=== PATIENT | male | born 1965 | race Caucasian/White ===

== ENCOUNTER → 2016-12-16 | Outpatient (CLI) | payer BC ==
[~2016-12-16] MED LIST: CIPR500T2; DIAZ10TA PO; HOSP BED1; LIFT HOYER; MELO7.5T4 PO; PERC10TA27 PO; XANA1TAB2 PO; ZANA4CAP PO
--- NOTE | 2016-12-16 14:49 | RADRPT ---
EXAM DATE/TIME: 12/16/2016 14:03 [facility] COMPARISON: No previous studies available for comparison. INDICATIONS : Evaluate for pneumonia, pneumothorax, or other communicable disease. Pre-op Cervical fusion. MEDICAL HISTORY : None. SURGICAL HISTORY : Lumbar surgery ENCOUNTER: Initial ACUITY: 1 day PAIN SCORE: 0/10 LOCATION: Bilateral chest FINDINGS: The heart is normal. The pulmonary vascular pattern is also normal. The lungs are clear. Hardware is noted within the thoracic spine status post fixation of compression deformities within the midthor acic spine. CONCLUSION: No acute cardiopulmonary disease. Job Conley MD on December 16, 2016 at 14:21 Board Certified Radiologist. This report was verified electronically.
== END ==
LOC: CPRE 13:30
PROVIDERS: ATTEND Neurological Surgery
DX: Z01.811 Encounter for preprocedural respiratory examination (principal); M50.10 Cervical disc disorder with radiculopathy, unspecified cervical region
CPT/HCPCS: 71020

== ENCOUNTER 2016-12-20 06:27 | Observation (INO) | payer BC ==
[~2016-12-20] VITALS: Ht 193 cm; Wt 95.0 kg
[~2016-12-20 06:27] MED LIST changes: -CIPR500T2; -MELO7.5T4 PO; -PERC10TA27 PO; -XANA1TAB2 PO
[2016-12-20] MEDS ORDERED: SODIUM CHLOR 0.9% 1000 ML INJ 1,000 ML IV SCH (07:15)
[2016-12-20] MEDS ORDERED: VANCOMYCIN HCL 1000 MG ON-CALL/NS 250 ML IV SCH ×2 (07:15)
[2016-12-20] MEDS ORDERED: INSULIN HUMAN REGULAR 1,000 UNITS/10 ML VIAL SQ PRN (07:15)
[2016-12-20] MEDS ORDERED: CHLORHEXIDINE GLUCONATE 2 % 1 PACK (2 CLOTHS) TOPICAL PRN (07:15)
[2016-12-20] MEDS ORDERED: METOPROLOL TARTRATE 25 MG TAB PO PRN (07:15)
[2016-12-20] MEDS ORDERED: POVIDONE IODINE 5% (ANTISEPSIS KIT) 4 APPLICATIONS EACH NARE PRN (07:15)
[2016-12-20] MEDS ORDERED: SODIUM CHLORID 0.9% 500 ML IV PRN (07:15)
[2016-12-20] MEDS ORDERED: MICROFIBRILLAR COLLAGEN HEMOSTAT 70 X 35 MM BANDAGE ONE (07:20)
[2016-12-20] MEDS ORDERED: ceFAZolin 2 GM PREMIX 50 ML ONE (07:20)
[2016-12-20] MEDS ORDERED: THROMBIN (TOPICAL) 5,000 UNIT VIAL ONE (07:20)
[2016-12-20] MEDS: LACTATED RINGER'S 1000 ML IV PRN ×2 (07:20→14:57)
[2016-12-20] MEDS ORDERED: GELFOAM SIZE 100 ONE (07:20)
[2016-12-20] MEDS ORDERED: GENTAMICIN SULFATE 80 MG/2 ML VIAL ONE ×2 (07:21→08:19)
[2016-12-20 07:48] LABS: BLOOD, URINE MOD (NEG); COMMENT (UR) CULT NOT INDICATED; CULTURE IF INDICATED CULT NOT INDICATED; GLUCOSE,URINE NEG (NEG); KETONE, URINE NEG (NEG); MUCUS URINE FEW /lpf (OCC); NITRITE,URINE NEG (NEG); URINE COLOR YELLOW (YELLW/STRAW)
[2016-12-20 07:50] LABS: APTT (PATIENT) 25.3 SEC (24.3-30.1); PROTHROMBIN TIME - PATIENT 10.8 SEC (9.8-11.6)
[2016-12-20] MEDS ORDERED: ARTIFICIAL TEARS OPTH OINT 3.5 APPLIC/3.5 GM TUBO ONE (08:14)
[2016-12-20] MEDS ORDERED: ACETAMINOPHEN 1000 MG/100 ML 100 ML IV ONE (08:14)
[2016-12-20] MEDS ORDERED: FAMOTIDINE 20 MG/2 ML VIAL ONE (08:15)
[2016-12-20] MEDS ORDERED: KETAMINE HCL 500 MG/5 ML VIAL ONE (08:27)
[2016-12-20] MEDS ORDERED: DEXMEDETOMIDINE HCL 200 MCG/2 ML VIAL ONE (08:30)
[2016-12-20] MEDS ORDERED: PROPOFOL 200 MG/20 ML AMP IV ONE ×2 (12:00→12:21)
[2016-12-20] MEDS ORDERED: MIDAZOLAM HCL 2 MG/2 ML VIAL IV ONE (12:21)
[2016-12-20] MEDS ORDERED: LIDOCAINE HCL 1% PF 5 ML AMPULE OTHER ONE (12:21)
[2016-12-20] MEDS ORDERED: ROCURONIUM INJ 50 MG/5 ML SYRINGE IV PUSH ONE (12:21)
[2016-12-20] MEDS ORDERED: GLYCOPYRROLATE 0.2 MG/ML VIAL IV ONE (12:21)
[2016-12-20] MEDS ORDERED: ONDANSETRON HCL 4 MG/2 ML VIAL IV PUSH ONE (12:21)
[2016-12-20] MEDS ORDERED: DEXAMETHASONE SOD PHOS 4 MG/ML VIAL IV ONE (12:21)
[2016-12-20] MEDS ORDERED: ePHEDrine/NS 25 MG/5 ML SYR IV ONE (12:21)
[2016-12-20] MEDS ORDERED: DO NOT ADM ANY ANTICOAGULANT DRUGS PRN (12:58)
[2016-12-20] MEDS ORDERED: *HYDROmorphone PF 1 MG VIAL PERIprocedural Use ONLY ONE ×2 (13:21→13:39)
[2016-12-20] MEDS ORDERED: MENTHOL LOZENGE BUCCAL PRN (13:30)
[2016-12-20] MEDS ORDERED: BISACODYL 10 MG SUPP RECTAL PRN (13:30)
[2016-12-20] MEDS ORDERED: RESP: ALBUTEROL 2.5 MG/3 ML NEB (PRN) INH (13:30)
[2016-12-20] MEDS ORDERED: SODIUM CHLORIDE 0.9% FLUSH 5 ML FLUSH IVF PRN (13:30)
[2016-12-20] MEDS ORDERED: ACETAMINOPHEN 325 MG TAB PO PRN (13:30)
[2016-12-20] MEDS ORDERED: ONDANSETRON HCL 4 MG/2 ML VIAL IV PRN (13:30)
[2016-12-20] MEDS ORDERED: oxyCODONE/ACETAMINOPHEN 5 MG/325 MG TAB PO PRN (13:30)
[2016-12-20] MEDS ORDERED: CYCLOBENZAPRINE HCL 10 MG TAB PO PRN (13:30)
[2016-12-20] MEDS ORDERED: KETOROLAC TROMETHAMINE 30 MG/ML (IVP) VIAL ONE ×2 (13:38→13:53)
[2016-12-20] MEDS ORDERED: KETOROLAC TROMETHAMINE 60 MG/2 ML (IM) VIAL IM SCH (14:00)
[2016-12-20] MEDS ORDERED: DIAZEPAM 10 MG TAB PO PRN (14:00)
--- NOTE | 2016-12-20 14:01 | EKG ---
Date Performed: 12/20/2016 Time Performed: 07:31:00 PTAGE: 51 years EKG: Sinus rhythm MODERATE INTRAVENTRICULAR CONDUCTION DELAY BORDERLINE ECG Compared to prior tracing no significant c madeline PREVIOUS TRACING : 09/20/2015 23.24 DOCTOR: Froylan Jerez Interpretating Date/Time 12/20/2016 13:59:54
[2016-12-20] MEDS: SODIUM CHLOR 0.9% 1000 ML INJ 1,000 ML IV SCH ×2 (14:30→23:21)
[2016-12-20] MEDS: SODIUM CHLORIDE 0.9% FLUSH 5 ML FLUSH IVF SCH ×2 (15:30→21:00)
[2016-12-20] MEDS: ALPRAZolam 1 MG TAB PO SCH ×2 (15:42→21:00)
[2016-12-20 16:00] VITALS: BP 109/65; PULSE 61; RESP 16; TEMP 97.6; O2SAT 98
[2016-12-20] MEDS ORDERED: cloNIDine HCL 0.1 MG TAB PO/NG PRN (16:00)
[2016-12-20] MEDS ORDERED: PERC10TA27 PO (16:17)
[2016-12-20] MEDS ORDERED: XANA1TAB2 PO (16:17)
--- NOTE | 2016-12-20 16:21 | PD.OP ---
Operative Report Date of Surgery: Dec 20, 2016 Preoperative Diagnosis: Postoperative Diagnosis: Procedure: C4-5. C5-6 anterior cervical discectomy and arthroplasty using Mobi C Anesthesia: general Surgeon: Mina Mosley Unix Developer(s): Ashley Becker Operation and Findings: INDICATIONS FOR THE PROCEDURE Mr Hobson is a 51 year-old male who presented with intractable neck pain and clinical evidence of C5 and C6 upper extremity radiculopathy. He was found to have disc herniations causing mass effect on the neurovascular structures. He failed maximum nonsurgical management including multiple modalities of conservative treatment as well as pain management interventions by an interventional pain specialist. A surgical decompression and arthroplasty were indicated. The [id number] details of the procedure, indications, alternatives, risks and potential complications were fully discussed with the patient. He fully understood. All The questions were answered. No guarantees were given. The patient voiced requesting the procedure and provided informed consents. he was offered the alternative of delaying the procedure and continuing with nonsurgical management. DETAILS OF THE SURGICAL PROCEDURE After the induction of general anesthesia, endotracheal intubation was performed. A Joshi catheter, bilateral REBECCA hose, and sequential compression devices were placed and kept throughout the procedure. The patient was positioned supine on a Jorge table with the head over a gel doughnut. All pressure points were carefully padded with egg crate mattress. The eyes were tapped shut after ointment was applied by the anesthesiologist to prevent corneal abrasion. A Saurabh hugger was placed over the exposed lower body to maintain control of the core body temperature. The electrophysiological team placed the needles and electrodes in their proper location and baseline SSEP's and motor evoked potentials were registered. The anterior cervical region was prepped and draped in the usual sterile fashion. A localizing x-ray was performed with a C-arm. The surgical procedure was performed in several steps as follow: SURGICAL APPROACH A skin incision was made along the middle cervical crease with a #10 blade. The dissection was carried out through the platysma exposing the sternocleidomastoid muscle. The cervical spine was approached following the fascial layers of the neck just medial to the anterior border of the sternocleidomastoid and carotid sheath by a combination of sharp and dull dissection. The omohyoid muscle was identified and carefully dissected laterally and the deep cervical fascia was carefully opened. The longus colli muscles were retracted to each side of the midline. A marker was placed at the disc space C5-6 and a cross-table lateral x-ray performed with a C-arm. SURGICAL DECOMPRESSION at C4-5 In order to decompress the anterior surface of the spinal cord it was necessary to preform a microsurgical resection of the disk. At this point in the procedure the operating microscope was draped in the usual sterile fashion and brought to the field. The rest of the surgical procedure was performed using microdissection technique with the exception of the closure. Under the operative microscopic, an anterior osteophytic spur was carefully removed using the leksell, and a self-retaining retractor was placed underneath the longus colli muscle. The annulus at C4-5 was incised with a #15 blade and microdiscectomy was then carefully carried out using angled curets and pituitary forceps. The patient had a posterior disk herniation which was producing mass affect on the anterior surface of the dural sac. This was carefully drilled with a TPS drill and resected with a think foot plate 2mm kerrison under high magnification. The posterior longitudinal ligament was then elevated with an angled curet and incised with a 15 bladed knife. A careful ressection of the posterior longitudinal ligament was carried out using a thin footplate 2 mm Kerrison. The decompression was then carried out laterally , and a bilateral foraminotomy was performed with a 2mm thin foot Kerrison. Then the vertebral bodies above and below the disk space were undercut using a 2 mm thin foot Kerrison. The epidural space was the systematically assessed with a nerve hook in search for disk fragments. An excellent decompression was achieved in both, the dural sac and bilateral exiting nerve roots. The incision was then irrigated with a large amount of antibiotic solution INTERBODY ARTHROPLASTY at C4-5 In order to avoid collapse of the disk space which would result in bilateral foraminal stenosis, and in order to maintain disk space height and function minimally development of adjacent level degeneration, it was necessary to place an interbody device. At this point of the procedure, gentle distraction was applied. The size of the interbody device was then assessed using a trial, and a cross table xray was done for confirmation of appropriate size and position of the device. Then the disk space was irrigated with antibiotic solution, and a 15mm by 5mm Mobi C artificial disk was carefully impacted into the disc space C4-5. An excellent position of the device was achieved. This was confirmed anatomically by feeling the space posterior to the implant and distance to the anterior surface of the dural sac. Radiological confirmation of the position was performed with a cross table AP and lateral X-ray views, performed with the C-arm. SURGICAL DECOMPRESSION AT 5-C6 At C5-6 an anterior osteophytic spur was carefully removed using the Leksell, and a self-retaining retractor was placed underneath the longus colli muscle. The annulus AT c6-7 was incised with a #15 blade and microdiscectomy was then carefully carried out using angled curets and pituitary forceps. The patient had a osteophitic spurr with a foraminal disk herniation at 5-6 which was producing mass affect on the exiting nerve roots. This was carefully dissected with a nerve hock and resected with a think foot plate 2 mm Kerrison under high magnification. The posterior longitudinal ligament was then elevated with an angled curet and incised with a 15 bladed knife. A careful resection of the posterior longitudinal ligament was carried out using a thin footplate 2 mm Kerrison. A disk protusion was found causing mechanical compression over the exiting C6 nerve root. The decompression was then carried out laterally, and a bilateral foraminotomy was performed with a 2 mm thin foot Kerrison. The epidural space was the systematically assessed with a nerve hook in search for disk fragment. An excellent decompression was achieved in both, the dural sac and bilateral exiting nerve roots. The incision was then irrigated with antibiotic solution INTERBODY ARTHROPLASTY at C5-6 In order to avoid collapse of the disk space which would result in bilateral foraminal stenosis, and in order to maintain disk space height and function minimally development of adjacent level degeneration, it was necessary to place an interbody device. At this point of the procedure, gentle distraction was applied at C5-6. The size of the interbody device was then assessed using a trial, and a cross table xray was done for confirmation of appropriate size and position of the device. Then the disk space was irrigated with antibiotic solution, and a 15mm by 5 mm Mobi C artificial disk was carefully impacted into the disc space C4-5 and C5- 6. An excellent position of the device was achieved. This was confirmed anatomically by feeling the space posterior to the implant and distance to the anterior surface of the dural sac. Radiological confirmation of the position was performed with a cross table AP and lateral X-ray views, performed with the C-arm. COMPLETION OF THE SURGICAL PROCEDURE Once that each interbody device was in an appropriate position, the distraction was discontinued. The position of the device as well as alignment of the spine were assessed anatomically by direct visualization, and radiologically by performing an AP and lateral X-ray of the cervical spine with the C-arm. The position of both implants was excellent. The incision was irrigated with several liters of antibiotic solution. Hemostasis was achieved with a bipolar. A 7 mm Jorge-Valverde drain was left in the prevertebral space and externalized through a separate stab incision. The incision was then closed in layers. 3-0 Vicryl with interrupted sutures was used to close the platysma and subcutaneous tissue. The skin was closed with 4- 0 running subcuticular Vicryl and Dermabond was applied to the skin. The drain was secured with a 3-0 nylon. At the end of the procedure the sponge, needle and instrument counts were all correct. The estimated blood loss was less than 70 cc. No blood transfusion was given. No intraoperative complications occurred. The patient received prophylactic antibiotics. The patient was then extubated and transferred to the recovery room in stable condition. In order to decompress the anterior surface of the spinal cord it was necessary to preform a microsurgical resection of the disk. At this point in the procedure the operating microscope was draped in the usual sterile fashion and brought to the field. The rest of the surgical procedure was performed using microdissection technique with the exception of the closure. Under the operative microscopic, an anterior osteophytic spur was carefully removed using the leksell, and a self-retaining retractor was placed underneath the longus colli muscle. The annulus at C5-6 were incised with a #15 blade and microdiscectomy was then carefully carried out using angled curets and pituitary forceps. The patient had a posterior disk herniation which was producing mass affect on the anterior surface of the dural sac. This was carefully drilled with a TPS drill and resected with a think foot plate 2mm kerrison under high magnification. The posterior longitudinal ligament was then elevated with an angled curet and incised with a 15 bladed knife. A careful ressection of the posterior longitudinal ligament was carried out using a thin footplate 2 mm Kerrison. The decompression was then carried out laterally , and a bilateral foraminotomy was performed with a 2mm thin foot Kerrison. Then the vertebral bodies above and below the disk space were undercut using a 2 mm thin foot Kerrison. The epidural space was the systematically assessed with a nerve hook in search for disk fragments. An excellent decompression was achieved in both, the dural sac and bilateral exiting nerve roots. The incision was then irrigated with a large amount of antibiotic solution INTERBODY ARTHROPLASTY at C5-6 In order to avoid collapse of the disk space which would result in bilateral foraminal stenosis, and in order to maintain disk space height and function minimally development of adjacent level degeneration, it was necessary to place an interbody device. At this point of the procedure, gentle distraction was applied. The size of the interbody device was then assessed using a trial, and a cross table xray was done for confirmation of appropriate size and position of the device. Then the disk space was irrigated with antibiotic solution, and a 15mm by 5mm Mobi C artificial disk was carefully impacted into the disc space C5-6 . An excellent position of the device was achieved. This was confirmed anatomically by feeling the space posterior to the implant and distance to the anterior surface of the dural sac. Radiological confirmation of the position was performed with a cross table AP and lateral X-ray views, performed with the C-arm. SURGICAL DECOMPRESSION AT C6-7 At c6-7 an anterior osteophytic spur was carefully removed using the Leksell, and a self-retaining retractor was placed underneath the longus colli muscle. The annulus AT c6-7 was incised with a #15 blade and microdiscectomy was then carefully carried out using angled curets and pituitary forceps. The patient had a osteophitic spurr with a foraminal disk herniation at C6-7 which was producing mass affect on the exiting nerve roots. This was carefully dissected with a nerve hock and resected with a think foot plate 2 mm Kerrison under high magnification. The posterior longitudinal ligament was then elevated with an angled curet and incised with a 15 bladed knife. A careful resection of the posterior longitudinal ligament was carried out using a thin footplate 2 mm Kerrison. A disk protusion was found causing mechanical compression over the exiting C7 nerve root. The decompression was then carried out laterally, and a bilateral foraminotomy was performed with a 2 mm thin foot Kerrison. The epidural space was the systematically assessed with a nerve hook in search for disk fragment. An excellent decompression was achieved in both, the dural sac and bilateral exiting nerve roots. The incision was then irrigated with antibiotic solution INTERBODY ARTHROPLASTY In order to avoid collapse of the disk space which would result in bilateral foraminal stenosis, and in order to maintain disk space height and function minimally development of adjacent level degeneration, it was necessary to place an interbody device. At this point of the procedure, gentle distraction was applied. The size of the interbody device was then assessed using a trial, and a cross table xray was done for confirmation of appropriate size and position of the device. Then the disk space was irrigated with antibiotic solution, and a 15mm by 6mm Mobi C artificial disk was carefully impacted into the disc space C6-7. An excellent position of the device was achieved. This was confirmed anatomically by feeling the space posterior to the implant and distance to the anterior surface of the dural sac. Radiological confirmation of the position was performed with a cross table AP and lateral X-ray views, performed with the C-arm. COMPLETION OF THE SURGICAL PROCEDURE Once that each interbody device was in an appropriate position, the distraction was discontinued. The position of the device as well as alignment of the spine were assessed anatomically by direct visualization, and radiologically by performing an AP and lateral X-ray of the cervical spine with the C-arm. The position of both implants was excellent. The incision was irrigated with several liters of antibiotic solution. Hemostasis was achieved with a bipolar. The incision was then closed in layers. 3-0 Vicryl with interrupted sutures was used to close the platysma and subcutaneous tissue. The skin was closed with 4-0 running subcuticular Vicryl and Dermabond was applied to the skin. The drain was secured with a 3-0 nylon. At the end of the procedure the sponge, needle and instrument counts were all correct. The estimated blood loss was less than 70 cc. No blood transfusion was given. No intraoperative complications occurred. The patient received prophylactic antibiotics. The patient was then extubated and transferred to the recovery room in stable condition. Mina Mosley MD 19, 2017 16:21
--- NOTE | 2016-12-20 16:42 | RADRPT ---
EXAM DATE/TIME: 12/20/2016 09:11 [facility] COMPARISON: No previous studies available for comparison. INDICATIONS : C4/5 C5/6 Arthrodesis. MEDICAL HISTORY : Unobtainable SURGICAL HISTORY : Unobtainable. ENCOUNTER: Initial ACUITY: 1 day PAIN SCORE: Non-responsive. LOCATION: Cervical spine FINDINGS: Patient postop metallic disc prosthesis across C4-5-6. Normal alignment. No complications are identif ied. CONCLUSION: 1. Postop change as above. Mio Wellington MD on December 20, 2016 at 16:39 Board Certified Radiologist. This report was verified electronically.
[2016-12-20] MEDS: HYDROmorphone HCL PF 1 MG/ML VIAL IV PUSH PRN ×2 (16:46→22:04)
[2016-12-20] MEDS: DEXAMETHASONE SOD PHOS 4 MG/ML VIAL IV SCH (16:46)
[2016-12-20] MEDS: ceFAZolin 2 GM PREMIX 50 ML IV SCH (16:46)
[2016-12-20] MEDS: oxyCODONE/ACETAMINOPHEN 5 MG/325 MG TAB PO PRN (18:37)
[2016-12-20 21:00] VITALS: BP 98/54; PULSE 50; RESP 19; TEMP 98.1; O2SAT 94
[2016-12-20] MEDS ORDERED: ZOLPIDEM TARTRATE 5 MG TAB PO PRN (21:00)
[2016-12-20 21:43] VITALS: O2SAT 95
[2016-12-20] MEDS: DOCUSATE SODIUM 100 MG CAP PO SCH (22:02)
[2016-12-20] MEDS: KETOROLAC TROMETHAMINE 60 MG/2 ML (IM) VIAL IM SCH (22:02)
[2016-12-21] MEDS: DEXAMETHASONE SOD PHOS 4 MG/ML VIAL IV SCH ×4 (01:59→16:13)
[2016-12-21] MEDS: KETOROLAC TROMETHAMINE 60 MG/2 ML (IM) VIAL IM SCH ×3 (02:00→13:01)
[2016-12-21] MEDS: ceFAZolin 2 GM PREMIX 50 ML IV SCH ×2 (02:02→08:47)
[2016-12-21 05:30] VITALS: BP 100/54; PULSE 54; RESP 19; TEMP 98.8; O2SAT 95
[2016-12-21] MEDS: ALPRAZolam 1 MG TAB PO SCH (08:43)
[2016-12-21] MEDS: DOCUSATE SODIUM 100 MG CAP PO SCH (08:43)
[2016-12-21] MEDS ORDERED: PANTOPRAZOLE SOD 40 MG DELAYED RELEASE TAB PO SCH (09:00)
[2016-12-21 09:05] VITALS: BP 114/73; PULSE 61; RESP 16; TEMP 98.1; O2SAT 95
[2016-12-21 09:09] VITALS: O2SAT 96
[2016-12-21] MEDS: SODIUM CHLORIDE 0.9% FLUSH 5 ML FLUSH IVF SCH (09:11)
--- NOTE | 2016-12-21 09:55 | HHI.DS ---
Elza Julien 12/21/16 0955: Discharge Summary Admission Date Dec 20, 2016 at 13:23 Discharge Date: Dec 21, 2016 Admitting Diagnosis s/p anterior cervical discectomy and arthroplasty (1) S/P cervical discectomy ICD Code: Z98.890 - Other specified postprocedural states Brief History Mr Hobson is a 51 year-old male who presented with intractable neck pain and clinical evidence of C5 and C6 upper extremity radiculopathy. He was found to have disc herniations causing mass effect on the neurovascular structures. He failed maximum nonsurgical management including multiple modalities of conservative treatment as well as pain management interventions by an interventional pain specialist. A surgical decompression and arthroplasty were indicated. Significant Findings Laboratory Tests Test 12/20/16 07:15 12/20/16 07:20 Urine Occult Blood MOD (NEG) Urine Leukocyte Esterase SMALL (NEG) Urine Mucus FEW /lpf (OCC) Imaging Last Impressions Cervical Spine X-Ray 12/20/16 0000 Signed Impressions: Service Date/Time: Tuesday, December 20, 2016 09:11 - CONCLUSION: 1. Postop change as above. Mio Wellington MD PE at Discharge Mr. Hobson is alert, awake and oriented to time, place and person. Speech is fluent. Cervical wound is clean and dry. Cranial nerve examination: pupils to be equal, round and reactive to light. Extra-ocular movements are intact. Facial motor and sensory function are normal and symmetrical. Gross hearing appears intact. Sternocleidomastoid and trapezius muscles are symmetrical. Cervical spine immobilized with a cervical collar. Motor: moving major muscle groups of upper extremities well. Paraplegia - 0/5 lower extremity bilaterally Hospital Course Mr. Hobson underwent a C4-5. C5-6 anterior cervical discectomy and arthroplasty using Mobi C on Dec 20, 2016. His surgery went well without complications. He reports having improvement of his preoperative radicular pain. He has mild cervical pain related to his surgery. He is discharged home in stable conditions. Wound care and activity restrictions discussed. Pt Condition on Discharge: Stable Discharge Disposition: Disch w/ Home Health Serv Discharge Instructions DIET: Follow Instructions for: As Tolerated, No Restrictions ADDITIONAL Diet Instructions: advace as tolerated ACTIVITIES You can perform: Weight Bearing As Ozzy ADDITIONAL Activity Instructio: Avoid strenuous activities, heavy lifting, overhead activities, repetitive bending, twisting, pushing, pulling or any activities which might result in stress over the spine. Avoid falls. Wear cervical collar, may remove only with meals. New Orders: X-RAY SPINE CERVICAL LIMITED - 2 Weeks @ Outside [facility] New Medications: Alprazolam (Xanax) 1 Mg Tab 1 MG PO BID PRN for ANXIETY, #60 TAB 0 Refills Oxycodone-Acetaminophen (Percocet) 10-325 mg Tab 1 TAB PO Q8HR PRN for PAIN, #90 TAB 0 Refills Continued Medications: Diazepam (Diazepam) 10 Mg Tab 10 MG PO Q6HR PRN for ANXIETY Tizanidine (Zanaflex) 4 Mg Cap 4 MG PO TID for Muscle Spasm, #90 CAP 1 Refill Mina Mosley MD 12/21/16 1402: Discharge Summary Pt Condition on Discharge: Good Discharge Disposition: Discharge Home Discharge Instructions ACTIVITIES You can perform: Regular-No Restrictions, Shower/Bath New Orders: X-RAY SPINE CERVICAL LIMITED - 2 Weeks @ Outside [facility] New Medications: Alprazolam (Xanax) 1 Mg Tab 1 MG PO BID PRN for ANXIETY, #60 TAB 0 Refills Oxycodone-Acetaminophen (Percocet) 10-325 mg Tab 1 TAB PO Q8HR PRN for PAIN, #90 TAB 0 Refills Continued Medications: Diazepam (Diazepam) 10 Mg Tab 10 MG PO Q6HR PRN for ANXIETY Tizanidine (Zanaflex) 4 Mg Cap 4 MG PO TID for Muscle Spasm, #90 CAP 1 Refill Elza Julien Dec 21, 2016 09:55 Mina Mosley MD Dec 21, 2016 14:02
--- NOTE | 2016-12-21 09:55 | HHI.DCPOC ---
Discharge Care Plan Diagnosis: (1) S/P cervical discectomy Goals to Promote Your Health * To prevent worsening of your condition and complications * To maintain your health at the optimal level Directions to Meet Your Goals Take your medications as prescribed Follow your dietary instruction Follow activity as directed Keep your appointments as scheduled Take your immunizations and boosters as scheduled If your symptoms worsen call your PCP, if no PCP go to Urgent Care Center or Emergency Room Smoking is Dangerous to Your Health. Avoid second hand smoke Call the 24-hour hour crisis hotline for domestic abuse at Elza Julien Dec 21, 2016 09:55
--- NOTE | 2016-12-21 09:57 | HHI.FF ---
Face to Face Verification Diagnosis: (1) S/P cervical discectomy Occupational Therapy Order: Evaluate and Treat Home Health Nursing Order: Medical education Wound care and dressing changes Nursing assessment with vital signs Home Health Aide Order: To Assist In: Bathing and personal care I have seen patient Torrey Hobson on 12/21/16. My clinical findings support the need for the requested home health care services because: Ltd mobility - disease progression Deconditioned w/ increased weakness Limited ability to care for self High risk of falls (patient is paraplegic) I certify that my clinical findings support that this patient is homebound because: Post-op weakness [id number] bed/chair Elza Julien Dec 21, 2016 09:57
[2016-12-21] MEDS: oxyCODONE/ACETAMINOPHEN 5 MG/325 MG TAB PO PRN ×2 (10:30→14:19)
[2016-12-21] MEDS: SODIUM CHLOR 0.9% 1000 ML INJ 1,000 ML IV SCH (11:00)
[2016-12-21 12:51] VITALS: BP 123/67; PULSE 68; RESP 18; TEMP 97.6; O2SAT 96
[2016-12-21 16:47] VITALS: BP 122/76; PULSE 55; RESP 18; TEMP 97.5; O2SAT 97
[2016-12-21 17:44] VITALS: O2SAT 97
[2016-12-27] MEDS ORDERED: MELO7.5T4 PO (09:46)
[2017-01-09] MEDS ORDERED: CIPR500T2 (13:55)
== END 2016-12-21 17:48 | disposition home or self-care (01) ==
LOC: HSDC 06:27 → HSDI 13:23 → N05A 15:30
PROVIDERS: ADMIT Neurological Surgery; ATTEND Neurological Surgery
DX: M50.10 Cervical disc disorder with radiculopathy, unspecified cervical region (principal); R94.31 Abnormal electrocardiogram [ECG] [EKG]; Z01.812 Encounter for preprocedural laboratory examination
CPT/HCPCS: 00600; 20936; 22551; 22552; 22845; 22856; 72040; 76000; 81001; 85610; 85730; 93005; 94150; 96361; 96365; 96366; 96372; 96375; 96376; 97162; C1713; G0378; G8987; G8988; J0131; J0690; J1100; J1170; J1580; J1885; J2250; J2405; J3010; J3370; J7030; J7050; J7120; L0150; L0172

== ENCOUNTER 2017-05-09 09:51 | Emergency (ER) | payer OTHER, BC ==
[~2017-05-09] VITALS: Ht 195.6 cm; Wt 93.0 kg
[~2017-05-09 09:51] MED LIST changes: +CIPR500T2; +MELO7.5T27 PO; +PERC10TA27 PO; +XANA1TAB2 PO
[2017-05-09 10:09] VITALS: BP 168/101; PULSE 72; RESP 18; TEMP 98.6; O2SAT 98
[2017-05-09] MEDS ORDERED: METO1TAB9 PO (10:12)
[2017-05-09] MEDS ORDERED: CYCL10TA PO ×2 (10:12→11:38)
[2017-05-09] MEDS ORDERED: CEPH-460 PO (10:12)
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
[2017-05-09] MEDS ORDERED: IBUP-232 PO (11:38)
[2017-05-09] MEDS ORDERED: CYCLOBENZAPRINE HCL 10 MG TAB PO ONE (11:45)
[2017-05-09] MEDS ORDERED: IBUPROFEN 600 MG TAB PO ONE (11:45)
== END 2017-05-09 12:18 | disposition home or self-care (01) ==
LOC: NEPC 09:51
DX: M54.2 Cervicalgia (principal); V43.52XA Car driver injured in collision with other type car in traffic accident, initial encounter
CPT/HCPCS: 72125; 99283